=== PATIENT | male | born 1990 | race American Indian/Alaskan Native ===

== ENCOUNTER 2017-03-20 01:25 | Emergency (ER) | payer OTHER ==
[2017-03-20 02:09] LABS: ALCOHOL SERUM 204 mg/dl (0-10); BLOOD UREA NITROGEN 12 mg/dl (9-20); CALCIUM 9.4 mg/dL (8.4-10.2); CARBON DIOXIDE 21 mmol/L (22-30); CHLORIDE 107 mmol/L (98-107); GFR AFRICAN-AMERICAN > 60; GLUCOSE,RANDOM 66 mg/dL (75-110); POTASSIUM 4.2 MMOL/L (3.6-5.0); SODIUM 146 mmol/l (132-148)
[2017-03-20 02:17] LABS: BASO # 0.1 K/uL (0.0-0.2); BASO % 0.6 % (0.0-2.0); EOS # 0.1 K/uL (0.0-0.7); EOS % 0.4 % (0.0-4.0); HEMATOCRIT 46.5 % (35.0-51.0); LYMPH # 2.5 K/uL (1.0-4.3); LYMPH % 14.4 % (20.0-40.0); MEAN CELL VOLUME 95.9 fl (80.0-94.0); MEAN CORPUSCULAR HEMOGLOBIN 31.5 pg (27.0-31.0); MEAN CORPUSCULAR HGB CONC 32.8 g/dL (33.0-37.0); MEAN PLATELET VOLUME 9.3 fl (7.2-11.7); MONO # 0.8 K/uL (0.0-0.8); MONO % 4.8 % (0.0-10.0); NEUT # 13.8 K/uL (1.8-7.0); NEUT % 79.8 % (50.0-75.0); NRBC % 0.1 % (0.0-0.0); RED CELL DISTRIBUTION WIDTH 12.9 % (11.5-14.5); WHITE BLOOD COUNT 17.3 K/uL (4.8-10.8)
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
[2017-03-20 03:02] LABS: BILIRUBIN,TOTAL 1.3 mg/dl (0.2-1.3); TOTAL PROTEIN 8.3 G/DL (6.3-8.2)
[2017-03-20 03:07] LABS: ALB/GLOB RATIO 1.5 (1.0-2.1)
[2017-03-20 07:39] VITALS: RESP 20
--- NOTE | 2017-03-20 09:01 | ED PDOC ---
- Laboratory Results Result Diagrams: 03/20/17 01:52 03/20/17 01:52 - ECG O2 Sat by Pulse Oximetry: 96 - Progress Re-evaluation Time: 09:00 Condition: Improved (awake alert oriented x 3 no focal neuro deficits. Requesting to go home) Disposition - Clinical Impression Clinical Impression: Alcohol abuse - POA Present On Arrival: None - Disposition Referrals: [facility] [Outside] Disposition: Routine/Home Disposition Time: 09:00 Condition: FAIR Instructions: Alcohol Intoxication (ED)
[2017-03-20 09:14] VITALS: BP 120/78; PULSE 78; TEMP 97.6
[2017-03-22 07:18] VITALS: O2SAT 94
== END 2017-03-20 09:14 | disposition home or self-care (01) ==
LOC: EDBD 01:25 → H.ER 01:25
DX: F10.129 Alcohol abuse with intoxication, unspecified (principal)

== ENCOUNTER 2017-07-21 06:40 | Emergency (ER) | payer MEDICAID, OTHER ==
[2017-07-21 06:55] VITALS: BP 148/93; PULSE 71; RESP 18; TEMP 98.2; O2SAT 100
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
== END 2017-07-21 09:42 | disposition home or self-care (01) ==
LOC: H.ER 06:40 → MERGE 06:40 → H.ER 09:42
DX: S00.83XA Contusion of other part of head, initial encounter (principal); Z86.59 Personal history of other mental and behavioral disorders; Y09 Assault by unspecified means

== ENCOUNTER 2017-11-11 08:44 | Emergency (ER) | payer OTHER ==
[2017-11-11 08:44] VITALS: BMI 23.0
[2017-11-11 08:57] VITALS: RESP 18
--- NOTE | 2017-11-11 10:21 | ED PDOC ---
HPI: Psych/Substance Abuse Time Seen by Provider: 11/11/17 09:31 Chief Complaint (Nursing): Substance Abuse Chief Complaint (Provider): Substance abuse Additional Complaint(s): [place] Pt without complaints. Past Medical History Reviewed: Nursing Documentation, Vital Signs Vital Signs: Last Vital Signs Temp 98.2 F 11/11/17 08:54 Pulse 80 11/11/17 08:54 Resp 18 11/11/17 08:54 BP Pulse Ox 98 11/11/17 08:54 - Medical History PMH: Bipolar Disorder, Paranoia, Schizophrenia Denies: Diabetes, Hepatitis, HIV, HTN, Seizures, Sexually Transmitted Disease - Family History Family History: States: Unknown Family Hx - Immunization History Hx Tetanus Toxoid Vaccination: No Hx Influenza Vaccination: No Hx Pneumococcal Vaccination: No - Home Medications Home Medications: Ambulatory Orders Medication Instructions Recorded No Known Home Med 10/12/17 - Allergies Allergies/Adverse Reactions: Allergies Allergy/AdvReac Type Severity Reaction Status Date / Time No Known Allergies Allergy Verified 10/12/17 18:54 Review of Systems Review Of Systems: ROS cannot be obtained secondary to pt's inabilty to answer questions. 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 Negative for: Aphasia - ECG O2 Sat by Pulse Oximetry: 98 Medical Decision Making Medical Decision Makin yo male with intoxication. - UDS - EtOH level - observation Disposition - Clinical Impression Clinical Impression: Substance abuse, Alcohol intoxication - Disposition Referrals: [facility] [Outside] Disposition: Routine/Home Disposition Time: 18:00 Condition: IMPROVED Instructions: Alcohol Intoxication (ED), Abuse of Alcohol (ED) Forms: [employer] (Citizen Of [place])
[2017-11-11 10:36] LABS: BARBITURATES, UR NEGATIVE (NEGATIVE); BENZODIAZEPINES, UR NEGATIVE (NEGATIVE); OPIATES, UR NEGATIVE (NEGATIVE); PHENCYCLIDINE, UR NEGATIVE (NEGATIVE)
[2017-11-11 14:12] VITALS: BP 120/64; PULSE 89; TEMP 97
[2017-11-14 16:35] VITALS: O2SAT 98
== END 2017-11-11 18:29 | disposition home or self-care (01) ==
LOC: H.ER 08:44
DX: F10.129 Alcohol abuse with intoxication, unspecified (principal); F20.9 Schizophrenia, unspecified; F31.9 Bipolar disorder, unspecified

== ENCOUNTER 2017-11-24 21:00 | Emergency (ER) | payer OTHER ==
[2017-11-24 21:00] VITALS: BMI 23.0
[2017-11-24 21:06] VITALS: TEMP 98
--- NOTE | 2017-11-24 22:02 | ED PDOC ---
HPI: Psych/Substance Abuse Time Seen by Provider: 11/24/17 21:00 Chief Complaint (Nursing): Substance Abuse Chief Complaint (Provider): Substance Abuse History Per: Patient History/Exam Limitations: clinical condition Onset/Duration Of Symptoms: Other (prior to arrival) Current Symptoms Are (Timing): Still Present Additional Complaint(s): 27 year old male with a past medical history of drug abuse, who presents to the ED for evaluation for possible substance abuse. [place] As [place] records, patient has a history of bipolar disorder, paranoia, and schizophrenia. PMD: None provided Past Medical History Reviewed: Historical Data, Nursing Documentation, Vital Signs Vital Signs: Last Vital Signs Temp 98.0 F 11/24/17 21:02 Pulse 83 11/24/17 21:02 Resp 10 L 11/24/17 21:02 BP Pulse Ox 97 11/24/17 21:02 - Medical History PMH: Bipolar Disorder, Paranoia, Schizophrenia Denies: Diabetes, Hepatitis, HIV, HTN, Seizures, Sexually Transmitted Disease - Family History Family History: States: Unknown Family Hx - Immunization History Hx Tetanus Toxoid Vaccination: No Hx Influenza Vaccination: No Hx Pneumococcal Vaccination: No - Home Medications Home Medications: Ambulatory Orders Medication Instructions Recorded No Known Home Med 10/12/17 - Allergies Allergies/Adverse Reactions: Allergies Allergy/AdvReac Type Severity Reaction Status Date / Time No Known Allergies Allergy Verified 10/12/17 18:54 Review of Systems Review Of Systems: ROS cannot be obtained secondary to pt's inabilty to answer questions. Physical Exam - Reviewed Nursing Documentation Reviewed: Yes Vital Signs Reviewed: Yes - Physical Exam Appears: Positive for: Non-toxic, No Acute Distress (poor hygiene) Cardiovascular/Chest: Positive for: Regular Rate, Rhythm. Negative for: Murmur Respiratory: Positive for: Normal Breath Sounds. Negative for: Respiratory Distress Gastrointestinal/Abdominal: Positive for: Normal Exam, Bowel Sounds, Soft. Negative for: Tenderness Neurologic/Psych: Positive for: Alert, Oriented - Laboratory Results Result Diagrams: 11/24/17 22:27 11/24/17 22:27 - ECG O2 Sat by Pulse Oximetry: 97 (RA) Pulse Ox Interpretation: Normal Medical Decision Making Medical Decision Making: Time: 21:32 Initial Impression: Pending sobriety, r/o overdose vs. alcohol intoxication Initial Plan: --Acetaminophen --Alcohol Serum --BMP --Urine Drug Screen --Salicylate --CBC w/ differential --Reevaluation Scribe Attestation: Documented by Fausto Khan, acting as a scribe for Zachery Garnett MD. Provider Scribe Attestation: All medical record entries made by the Scribe were at my direction and personally dictated by me. I have reviewed the chart and agree that the record accurately reflects my personal performance of the history, physical exam, medical decision making, and the department course for this patient. I have also personally directed, reviewed, and agree with the discharge instructions and disposition. Disposition - Clinical Impression Clinical Impression: Alcohol abuse with intoxication - Patient ED Disposition Is Patient to be Admitted: Transfer of Care - Disposition Disposition: Transfer of Care Disposition Time: 19:00 Condition: STABLE Instructions: Effects of Alcohol on Your Health Forms: [employer] (Anguillan) Patient Signed Over To: Puma Louis
[2017-11-24 22:30] LABS: BASO % 0.3 % (0.0-2.0); EOS # 0.1 K/uL (0.0-0.7); EOS % 0.7 % (0.0-4.0); HEMOGLOBIN 14.6 g/dL (12.0-18.0); LYMPH # 2.3 K/uL (1.0-4.3); LYMPH % 26.2 % (20.0-40.0); MEAN CORPUSCULAR HEMOGLOBIN 33.1 pg (27.0-31.0); MEAN CORPUSCULAR HGB CONC 33.7 g/dL (33.0-37.0); MEAN PLATELET VOLUME 8.8 fl (7.2-11.7); MONO # 0.7 K/uL (0.0-0.8); MONO % 7.5 % (0.0-10.0); NEUT # 5.8 K/uL (1.8-7.0); NEUT % 65.3 % (50.0-75.0); NRBC % 0.1 % (0.0-0.0); RBC 4.4 Mil/uL (4.40-5.90); RED CELL DISTRIBUTION WIDTH 13.1 % (11.5-14.5); WHITE BLOOD COUNT 8.9 K/uL (4.8-10.8)
[2017-11-24 22:47] LABS: ACETAMINOPHEN < 10.0 ug/ml (10.0-30.0); SALICYLATE < 1.0 mg/dl
[2017-11-24 22:54] LABS: BLOOD UREA NITROGEN 7 mg/dl (9-20); CALCIUM 8.8 mg/dL (8.4-10.2); GFR AFRICAN-AMERICAN > 60; GFR NON-AFRICAN AMERICAN > 60
--- NOTE | 2017-11-25 00:34 | ED PDOC ---
- Laboratory Results Result Diagrams: 11/24/17 22:27 11/24/17 22:27 - ECG O2 Sat by Pulse Oximetry: 97 (RA) Pulse Ox Interpretation: Normal Medical Decision Making Medical Decision Making: Patient signed out to me by Dr. Garnett pending sobriety. Clinical Impression: Alcohol abuse with intoxication Patient is awake, alert, and oriented x3. He has a steady gait and will be discharged. Documented by Shaheed Greene acting as a scribe for Puma Louis MD. All medical record entries made by the Scribe were at my direction and personally dictated by me. I have reviewed the chart and agree that the record accurately reflects my personal performance of the history, physical exam, medical decision making, and the department course for this patient. I have also personally directed, reviewed, and agree with the discharge instructions and disposition. Disposition - Clinical Impression Clinical Impression: Alcohol abuse with intoxication - POA Present On Arrival: None - Disposition Disposition: Routine/Home Disposition Time: 05:32 Condition: STABLE Instructions: Effects of Alcohol on Your Health Forms: [employer] (Amharic)
[2017-11-25 03:28] VITALS: BP 106/74; PULSE 73; RESP 24
[2017-11-25 05:34] VITALS: O2SAT 97
== END 2017-11-25 05:51 | disposition home or self-care (01) ==
LOC: H.ER 21:00
DX: F10.129 Alcohol abuse with intoxication, unspecified (principal); F20.9 Schizophrenia, unspecified; F31.9 Bipolar disorder, unspecified

== ENCOUNTER 2017-11-30 01:42 | Emergency (ER) | payer OTHER ==
[2017-11-30 01:42] VITALS: BMI 23.0
[2017-11-30 01:55] VITALS: RESP 18; TEMP 98.2
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
[2017-11-30] MEDS ORDERED: Naloxone 0.4 mg/ml Inj (Adult) IVP ONE (02:11)
[2017-11-30] MEDS ORDERED: Sodium Chloride 0.9% 1,000 ML IV STA ×2 (02:12→03:28)
[2017-11-30] MEDS ORDERED: Naloxone 0.4 mg/ml Inj (Adult) ONE (02:26)
[2017-11-30 02:40] LABS: BASO # 0.1 K/uL (0.0-0.2); BASO % 0.8 % (0.0-2.0); EOS % 0.3 % (0.0-4.0); HEMOGLOBIN 14.5 g/dL (12.0-18.0); LYMPH # 2.2 K/uL (1.0-4.3); LYMPH % 24.5 % (20.0-40.0); MEAN CELL VOLUME 98.7 fl (80.0-94.0); MEAN CORPUSCULAR HEMOGLOBIN 33.4 pg (27.0-31.0); MEAN CORPUSCULAR HGB CONC 33.8 g/dL (33.0-37.0); MEAN PLATELET VOLUME 9.2 fl (7.2-11.7); MONO # 0.5 K/uL (0.0-0.8); MONO % 6.2 % (0.0-10.0); NEUT % 68.2 % (50.0-75.0); NRBC % 0.1 % (0.0-0.0); RBC 4.33 Mil/uL (4.40-5.90); RED CELL DISTRIBUTION WIDTH 12.9 % (11.5-14.5); WHITE BLOOD COUNT 8.8 K/uL (4.8-10.8)
[2017-11-30 03:14] LABS: ALB/GLOB RATIO 1.4 (1.0-2.1); ALBUMIN 4.1 g/dL (3.5-5.0); ALT/SGPT 22 U/L (21-72); AST/SGOT 24 U/L (17-59); BLOOD UREA NITROGEN 7 mg/dl (9-20); GFR AFRICAN-AMERICAN > 60; GFR NON-AFRICAN AMERICAN > 60
[2017-11-30 04:11] LABS: BARBITURATES, UR NEGATIVE (NEGATIVE); BENZODIAZEPINES, UR NEGATIVE (NEGATIVE); OPIATES, UR NEGATIVE (NEGATIVE); PHENCYCLIDINE, UR NEGATIVE (NEGATIVE)
[2017-11-30 04:18] VITALS: BP 124/64; PULSE 101
[2017-11-30 04:56] VITALS: O2SAT 98
--- NOTE | 2017-11-30 11:38 | CARD ---
APPROVED REPORT EKG Measurement Heart [id number] <Conclusion> Normal sinus rhythm Normal ECG
== END 2017-11-30 05:20 | disposition home or self-care (01) ==
LOC: H.ER 01:42
DX: F10.129 Alcohol abuse with intoxication, unspecified (principal); F20.9 Schizophrenia, unspecified; F31.9 Bipolar disorder, unspecified
CPT/HCPCS: 80053; 80320; 80324; 80345; 80346; 80349; 80353; 80358; 80361; 82948; 83992; 85025; 93005; 96374; 99284; J2310; J7040

== ENCOUNTER 2017-11-30 21:11 | Emergency (ER) | payer OTHER ==
[2017-11-30 21:12] VITALS: BMI 23.0
[2017-11-30 21:30] VITALS: TEMP 98.1
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
[2017-11-30] MEDS ORDERED: Sodium Chloride 0.9% 1,000 ML IV STA (21:51)
[2017-11-30 22:18] LABS: BASO # 0.1 K/uL (0.0-0.2); BASO % 0.8 % (0.0-2.0); EOS % 0.4 % (0.0-4.0); HEMOGLOBIN 14.5 g/dL (12.0-18.0); LYMPH # 2.3 K/uL (1.0-4.3); LYMPH % 27.2 % (20.0-40.0); MEAN CELL VOLUME 98.2 fl (80.0-94.0); MEAN CORPUSCULAR HEMOGLOBIN 33.3 pg (27.0-31.0); MEAN CORPUSCULAR HGB CONC 33.9 g/dL (33.0-37.0); MEAN PLATELET VOLUME 8.9 fl (7.2-11.7); MONO # 0.5 K/uL (0.0-0.8); MONO % 6.3 % (0.0-10.0); NEUT # 5.6 K/uL (1.8-7.0); NEUT % 65.3 % (50.0-75.0); NRBC % 0.1 % (0.0-0.0); RBC 4.35 Mil/uL (4.40-5.90); RED CELL DISTRIBUTION WIDTH 13.3 % (11.5-14.5); WHITE BLOOD COUNT 8.6 K/uL (4.8-10.8)
[2017-11-30 22:29] LABS: ALB/GLOB RATIO 1.5 (1.0-2.1); ALBUMIN 4.2 g/dL (3.5-5.0); ALT/SGPT 24 U/L (21-72); AST/SGOT 37 U/L (17-59); BLOOD UREA NITROGEN 8 mg/dl (9-20); CALCIUM 8.8 mg/dL (8.4-10.2); GFR AFRICAN-AMERICAN > 60; GFR NON-AFRICAN AMERICAN > 60
[2017-11-30 23:35] LABS: BENZODIAZEPINES, UR NEGATIVE (NEGATIVE); OPIATES, UR NEGATIVE (NEGATIVE); PHENCYCLIDINE, UR NEGATIVE (NEGATIVE)
[2017-12-01 00:51] LABS: BARBITURATES, UR NEGATIVE (NEGATIVE)
[2017-12-01 03:10] VITALS: BP 110/63; PULSE 84; RESP 18; O2SAT 96
== END 2017-12-01 03:10 | disposition home or self-care (01) ==
LOC: H.ER 21:11
DX: F10.129 Alcohol abuse with intoxication, unspecified (principal); F20.9 Schizophrenia, unspecified; F31.9 Bipolar disorder, unspecified

== ENCOUNTER 2018-07-03 00:21 | Emergency (ER) | payer MEDICAID, OTHER ==
[2018-07-03 00:21] VITALS: BMI 23.0
[2018-07-03 00:45] VITALS: BP 129/80; PULSE 76; RESP 16; TEMP 98.5; O2SAT 98
--- NOTE | 2018-07-03 00:45 | ED PDOC ---
HPI: Psych/Substance Abuse Time Seen by Provider: 07/03/18 00:30 Chief Complaint (Nursing): Alcohol Ingestion History Per: Patient, EMS History/Exam Limitations: no limitations Onset/Duration Of Symptoms: Hrs Current Symptoms Are (Timing): Still Present Additional Complaint(s): Patient was brought to the ER for evaluation of alcohol intoxication. Patient admits to drinking today denies drug. States he was walking home and was picked up by EMS. Has no complaints currently. A&O x 3. Past Medical History Reviewed: Historical Data, Nursing Documentation, Vital Signs - Medical History PMH: Bipolar Disorder, Paranoia, Schizophrenia Denies: Diabetes, Hepatitis, HIV, HTN, Seizures, Sexually Transmitted Disease - Family History Family History: States: Unknown Family Hx - Immunization History Hx Tetanus Toxoid Vaccination: No Hx Influenza Vaccination: No Hx Pneumococcal Vaccination: No - Home Medications Home Medications: Ambulatory Orders Medication Instructions Recorded No Known Home Med 10/12/17 - Allergies Allergies/Adverse Reactions: Allergies Allergy/AdvReac Type Severity Reaction Status Date / Time No Known Allergies Allergy Verified 10/12/17 18:54 Review of Systems ROS Statement: Except As Marked, All Systems Reviewed And Found Negative Physical Exam - Reviewed Nursing Documentation Reviewed: Yes Vital Signs Reviewed: Yes - Physical Exam Appears: Positive for: Well, Non-toxic, No Acute Distress Head Exam: Positive for: ATRAUMATIC, NORMAL INSPECTION, NORMOCEPHALIC Skin: Positive for: Normal Color, Warm, DRY Eye Exam: Positive for: EOMI, Normal appearance, PERRL ENT: Positive for: Normal ENT Inspection Neck: Positive for: Normal, Painless ROM Cardiovascular/Chest: Positive for: Regular Rate, Rhythm Respiratory: Positive for: CNT, Normal Breath Sounds Gastrointestinal/Abdominal: Positive for: Normal Exam, Soft Back: Positive for: Normal Inspection Extremity: Positive for: Normal ROM Neurologic/Psych: 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 Negative for: Motor/Sensory Deficits - ECG Pulse Ox Interpretation: Normal Medical Decision Making Medical Decision Making: Patient with alcohol intoxication. --Although mildly intoxicated, patient is alert, oriented to person, place, time, and situation --Has steady gait, normal vitals, able to make decisions for himself, stable for discharge Disposition - Clinical Impression Clinical Impression: Alcohol abuse - Patient ED Disposition Is Patient to be Admitted: No - Disposition Referrals: [facility] [Outside] Disposition: Routine/Home Disposition Time: 00:45 Condition: GOOD Instructions: Alcohol Abuse and Alcoholism (DC)
== END 2018-07-03 00:41 | disposition home or self-care (01) ==
LOC: H.ER 00:21
DX: F10.10 Alcohol abuse, uncomplicated (principal)

== ENCOUNTER 2018-07-25 04:16 | Emergency (ER) | payer MEDICAID, OTHER ==
[2018-07-25 04:16] VITALS: BMI 23.0
[2018-07-25 04:35] VITALS: BP 138/82; PULSE 98; RESP 16; TEMP 98.6; O2SAT 98
--- NOTE | 2018-07-25 04:59 | ED PDOC ---
HPI: Head Injury Time Seen by Provider: 07/25/18 04:56 Chief Complaint (Nursing): Headache Chief Complaint (Provider): FACIAL INJURY History Per: Patient (27 Y/O MALE HERE FOR FACIAL INJURY THAT OCCURRED PRIOR TO ED ARRIVAL. STATES HE HAS HAD RECENT LACERATION REPAIR 2 WEEKS AGO AND WAS CONCERNED THAT HE WOULD NEED MORE SUTURES. DENIES ANY LOC/ETC.) Past Medical History Reviewed: Historical Data, Nursing Documentation, Vital Signs Vital Signs: Last Vital Signs Temp 98.6 F 07/25/18 04:32 Pulse 98 H 07/25/18 04:32 Resp 16 07/25/18 04:32 BP 138/82 07/25/18 04:32 Pulse Ox 98 07/25/18 04:32 - Medical History PMH: Bipolar Disorder, Paranoia, Schizophrenia Denies: Diabetes, Hepatitis, HIV, HTN, Seizures, Sexually Transmitted Disease - Family History Family History: States: Unknown Family Hx - Immunization History Hx Tetanus Toxoid Vaccination: No Hx Influenza Vaccination: No Hx Pneumococcal Vaccination: No - Home Medications Home Medications: Ambulatory Orders Medication Instructions Recorded Cephalexin [cephalexin] 500 mg PO BID #10 cap 07/10/18 Ibuprofen [Motrin] 600 mg PO Q6 PRN #20 tab 07/10/18 - Allergies Allergies/Adverse Reactions: Allergies Allergy/AdvReac Type Severity Reaction Status Date / Time No Known Allergies Allergy Verified 10/12/17 18:54 Review of Systems ROS Statement: Except As Marked, All Systems Reviewed And Found Negative Physical Exam - Reviewed Nursing Documentation Reviewed: Yes Vital Signs Reviewed: Yes - Physical Exam Appears: Positive for: Well, Non-toxic, No Acute Distress Head Exam: Positive for: NORMAL INSPECTION, NORMOCEPHALIC. Negative for: ATRAUMATIC (RIGHT EYEBROW SWELLING NOTED WITH LACERATION HEALING 2 CM ) Skin: Positive for: Normal Color, Warm, DRY Eye Exam: Positive for: EOMI, Normal appearance, PERRL ENT: Positive for: Normal ENT Inspection Neck: Positive for: Normal, Painless ROM Cardiovascular/Chest: Positive for: Regular Rate, Rhythm Respiratory: Positive for: CNT, Normal Breath Sounds Gastrointestinal/Abdominal: Positive for: Normal Exam, Soft Back: Positive for: Normal Inspection Extremity: Positive for: Normal ROM Neurologic/Psych: Positive for: Alert, Oriented - ECG O2 Sat by Pulse Oximetry: 98 - Progress ED Course And Treament: CT FACIAL/ORBIT ORDERED. PATIENT DOES NOT WANT A BIG BILL AND REFUSES CT FACE AT THIS TIME. STATES HE WOULD LIKE TO RETURN WHEN [employer] IS HERE. Disposition - Clinical Impression Clinical Impression: Facial injury - Patient ED Disposition Is Patient to be Admitted: No - Disposition Disposition: Against Medical Advice Disposition Time: 05:00 Condition: FAIR
== END 2018-07-25 05:00 | disposition left against medical advice (07) ==
LOC: H.ER 04:16
DX: G50.1 Atypical facial pain (principal)